=== PATIENT | male | born 1990 | race Two or more races ===

== ENCOUNTER 2017-09-23 06:37 | Emergency (ER) | payer MEDICAID ==
[~2017-09-23] VITALS: Ht 177.8 cm; Wt 113.1 kg
[2017-09-23 06:45] VITALS: Ht 177.8 cm; Wt 113.1 kg
[2017-09-23 08:00] VITALS: BP 132/90
== END 2017-09-23 08:00 | disposition home or self-care (01) ==
LOC: ED 06:37
DX: R51 Headache (principal); R10.9 Unspecified abdominal pain; R11.2 Nausea with vomiting, unspecified; B34.9 Viral infection, unspecified
CPT/HCPCS: 82962; J1885; J2550